=== PATIENT | female | born 1965 | race Caucasian/White ===

== ENCOUNTER → 2017-05-16 | Outpatient (CLI) | payer OTHER ==
[~2017-05-16] MED LIST: AMLO-96 PO; ASPI-757 PO; BUPR-126 PO; BUPR-133 PO; CETI-176 PO; CETI10CA8 PO; CLOP75TA43 PO; ESCI20TA8 PO; EZET10TA41 PO; FLUO40CA76 PO; FLUO60TA PO; FURO-47 PO; INSU100V24 SQ; KET10 PO; LANI SUBQ; LIR18IPT SUBQ; LISI20TA29 PO; MECL25TA27 PO; METF-420 PO; METO200T12 PO; NAPR220C12 PO; NOR5 FT; OLOOD OU; OMEG-23 PO; OXYC-865 PO; ROSU40TA18 PO; [UNRECOGNIZED DRUG - CODE] PO
[2017-05-16 13:34] LABS: PLATELET COUNT, AUTOMATED 215 K/uL (150-450)
== END ==
LOC: LAB 13:00
PROVIDERS: ATTEND Internal Medicine
DX: F41.8 Other specified anxiety disorders (principal); I10 Essential (primary) hypertension; I25.10 Atherosclerotic heart disease of native coronary artery without angina pectoris; E11.9 Type 2 diabetes mellitus without complications; R79.89 Other specified abnormal findings of blood chemistry
CPT/HCPCS: 36415; 82040; 82043; 82247; 82310; 82374; 82435; 82565; 82947; 83036; 84075; 84132; 84155; 84295; 84450; 84460; 84520; 85025

== ENCOUNTER → 2017-08-16 | Outpatient (CLI) | payer OTHER ==
[~2017-08-16] MED LIST changes: +MELO-207 PO; -METF-420 PO; +METF-421 PO; +TRAM-420 PO
--- NOTE | 2017-08-16 20:57 | RADIOLOGY IMAGING REPORT ---
FACILITY: [facility] - [place] PATIENT NAME: Michelle Espinoza : 1965 MR: [id number] V: [id number] EXAM DATE: ORDERING PHYSICIAN: MADALYN HUMPHREYS TECHNOLOGIST: Location: [facility] [place] Patient: Michelle Espinoza : 1965 Visit/Account:[id number] Date of Sevice: 08/16/2017 HAND COMPLETE RIGHT History: Right hand pain. Comparison study: None. Findings: There is no fracture or dislocation involving the right hand. There are no findings of art hropathy. IMPRESSION: Normal right hand x-rays. Report Dictated By: Brando Montgomery MD at 08/16/2017 8:51 PM Report E-Signed By: Brando Montgomery MD at 08/16/2017 8:52 PM WSN:[id number]
== END ==
LOC: RAD 16:52
PROVIDERS: ATTEND Internal Medicine
DX: M25.541 Pain in joints of right hand (principal)